=== PATIENT | female | born 1995 | race Caucasian/White ===

== ENCOUNTER → 2017-10-27 | Outpatient (CLI) | payer OTHER | LOC: LAB 14:48 | PROVIDERS: ATTEND Internal Medicine Endocrinology, Diabetes & Metabolism | DX: E10.65 Type 1 diabetes mellitus with hyperglycemia (principal); E05.00 Thyrotoxicosis with diffuse goiter without thyrotoxic crisis or storm | CPT/HCPCS: 36415; 82043; 82465; 83036; 83519; 83718; 84439; 84443; 84478; 84481 ==

== ENCOUNTER → 2018-02-02 | Outpatient (CLI) | payer OTHER | LOC: LAB 09:34 | PROVIDERS: ATTEND Internal Medicine Endocrinology, Diabetes & Metabolism | DX: E10.65 Type 1 diabetes mellitus with hyperglycemia (principal) | CPT/HCPCS: 36415; 82465; 83718; 84478 ==

== ENCOUNTER → 2018-04-21 | Outpatient (CLI) | payer OTHER | LOC: LAB 15:18 | PROVIDERS: ATTEND Internal Medicine Endocrinology, Diabetes & Metabolism | DX: E10.9 Type 1 diabetes mellitus without complications (principal); E05.00 Thyrotoxicosis with diffuse goiter without thyrotoxic crisis or storm | CPT/HCPCS: 36415; 82310; 82374; 82435; 82565; 82947; 83036; 84132; 84295; 84439; 84443; 84481; 84520 ==

== ENCOUNTER → 2018-08-08 | Outpatient (CLI) | payer OTHER | LOC: LAB 12:24 | PROVIDERS: ATTEND Internal Medicine Endocrinology, Diabetes & Metabolism | DX: E10.9 Type 1 diabetes mellitus without complications (principal); E05.00 Thyrotoxicosis with diffuse goiter without thyrotoxic crisis or storm | CPT/HCPCS: 36415; 82310; 82374; 82435; 82565; 82947; 83036; 84132; 84295; 84443; 84481; 84520 ==

== ENCOUNTER → 2018-09-18 | Outpatient (CLI) | payer OTHER ==
[2018-09-18 07:54] LABS: PLATELET COUNT, AUTOMATED 256 K/uL (150-450)
== END ==
LOC: LAB 07:36
PROVIDERS: ATTEND Nurse Practitioner Family
DX: Z00.00 Encounter for general adult medical examination without abnormal findings (principal); R53.83 Other fatigue
CPT/HCPCS: 36415; 82306; 82465; 83718; 84478; 85025

== ENCOUNTER → 2019-01-23 | Outpatient (CLI) | payer OTHER ==
[2019-01-23 12:58] LABS: LDL CHOLESTEROL 66 mg/dl
== END ==
LOC: LAB 12:15
PROVIDERS: ATTEND Internal Medicine Endocrinology, Diabetes & Metabolism
DX: E05.00 Thyrotoxicosis with diffuse goiter without thyrotoxic crisis or storm (principal); E10.9 Type 1 diabetes mellitus without complications
CPT/HCPCS: 36415; 82040; 82043; 82247; 82310; 82374; 82435; 82465; 82565; 82947; 83036; 83718; 84075; 84132; 84155; 84295; 84439; 84443; 84450; 84460; 84478; 84481; 84520